=== PATIENT | female | born 1960 | race Caucasian/White ===

== ENCOUNTER 2016-12-14 17:58 | Observation (INO) | payer OTHER ==
[~2016-12-14] VITALS: Ht 160 cm; Wt 73.0 kg
[2016-12-14 19:17] LABS: HEMOGLOBIN 13.6 gm/dl (12.3-15.3); RED BLOOD COUNT 4.66 M/UL (4.00-5.10); WHITE BLOOD COUNT 5.7 K/UL (4.5-11.0)
[2016-12-15] MEDS ORDERED: FUROSEMIDE20 MG PO (03:18)
[2016-12-15] MEDS ORDERED: ZANAFLEX 4 MG TA4 MG PO (03:19)
[2016-12-15] MEDS ORDERED: ATIVAN 1MG TABLE1 MG PO (03:19)
[2016-12-15] MEDS ORDERED: ULTRAM50 MG PO (03:20)
[2016-12-15] MEDS ORDERED: COREG 12.5MG12.5 MG PO (03:20)
[2016-12-15] MEDS ORDERED: LIPITOR TAB 2020 MG PO (03:20)
[2016-12-15] MEDS ORDERED: EFFEXOR XR37.5 MG PO (03:21)
[2016-12-15] MEDS ORDERED: ALDACTONE 25MG25 MG PO (03:21)
[2016-12-15] MEDS ORDERED: ASPIR 8181 MG PO (03:22)
[2016-12-15] MEDS ORDERED: COZAAR25 MG PO (10:08)
== END 2016-12-15 17:36 | disposition home or self-care (01) ==
LOC: ER1 17:58 → M/S 23:35 → ZEROF 23:35 → M/S 12-15 01:18
PROVIDERS: Physician Assistant; ADMIT Internal Medicine
DX: R07.9 Chest pain, unspecified (principal); I25.10 Atherosclerotic heart disease of native coronary artery without angina pectoris; I11.0 Hypertensive heart disease with heart failure; I50.20 Unspecified systolic (congestive) heart failure; E78.5 Hyperlipidemia, unspecified; M79.7 Fibromyalgia; F41.9 Anxiety disorder, unspecified; Z86.79 Personal history of other diseases of the circulatory system; Z88.1 Allergy status to other antibiotic agents; Z79.82 Long term (current) use of aspirin; Z79.899 Other long term (current) drug therapy; Z98.890 Other specified postprocedural states
CPT/HCPCS: ECHO; 36415; 71010; 80053; 80061; 82550; 82553; 83874; 83880; 84484; 85025; 92610; 93005; 93306; 93971; 96372; 99285; G0378; J1650